=== PATIENT | male | born 1985 ===

== ENCOUNTER 2017-01-20 10:18 | Emergency (ER) | payer OTHER ==
[2017-01-20 10:23] VITALS: BMI 26.4
[2017-01-20 10:41] VITALS: TEMP 97.7
--- NOTE | 2017-01-20 10:54 | RAD ---
HISTORY: pain for 2 days COMPARISON: No prior. TECHNIQUE: Chest PA and lateral FINDINGS: LUNGS: No active pulmonary disease. PLEURA: No significant pleural effusion identified. No pneumothorax apparent. CARDIOVASCULAR: Normal. OSSEOUS STRUCTURES: No significant abnormalities. VISUALIZED UPPER ABDOMEN: Normal. OTHER FINDINGS: None. IMPRESSION: No active disease.
--- NOTE | 2017-01-20 10:56 | C.PDOC ---
History Of Present Illness 31 y/o male, presents to the ED for evaluation of mid-sternal chest pain and epigastric abdominal pain which has been occurring in intermittent episodes since yesterday. Patient is unable to fully describe his symptoms but states his pain became "sharper" when he attempted to take deep breaths this morning. Patient has not taken any medication for his symptoms and denies fever, chills, shortness of breath, difficulty with breathing, nausea, upper/lower extremity numbness/weakness. Time Seen by Provider: 01/20/17 10:32 Chief Complaint (Nursing): Chest Pain History Per: Patient History/Exam Limitations: no limitations Onset/Duration Of Symptoms: Days, Intermittent Episodes Current Symptoms Are (Timing): Still Present Additional History Per: Patient Past Medical History Reviewed: Historical Data, Nursing Documentation, Vital Signs Vital Signs: Last Vital Signs Temp 97.7 F 01/20/17 10:24 Pulse 54 L 01/20/17 11:05 Resp 16 01/20/17 11:05 BP 110/67 01/20/17 11:05 Pulse Ox 100 01/20/17 13:04 - Medical History PMH: No Chronic Diseases Surgical History: No Surg Hx Family History: States: Unknown Family Hx - Social History Hx Alcohol Use: Yes Hx Substance Use: No - Immunization History Hx Tetanus Toxoid Vaccination: No Hx Influenza Vaccination: No Hx Pneumococcal Vaccination: No Review Of Systems Except As Marked, All Systems Reviewed And Found Negative. Constitutional: Negative for: Fever, Chills Cardiovascular: Positive for: Chest Pain (mid-sternal ) Respiratory: Negative for: Shortness of Breath Gastrointestinal: Positive for: Abdominal Pain (epigastric) Physical Exam - Physical Exam Appears: Non-toxic, No Acute Distress Skin: Normal Color, Warm, Dry Head: Atraumatic, Normacephalic Eye(s): bilateral: Normal Inspection, EOMI Oral Mucosa: Moist Neck: Normal ROM, Supple Chest: Symmetrical, No Deformity, Tenderness (reproducible to anterior wall on palpation ) Cardiovascular: Rhythm Regular, No Murmur Respiratory: Normal Breath Sounds, No Rales, No Rhonchi, No Wheezing Gastrointestinal/Abdominal: Soft, No Tenderness, No Guarding, No Rebound Back: Normal Inspection, No Vertebral Tenderness, No Paraspinal Tenderness Extremity: Normal ROM, Capillary Refill (less than 2 seconds) Neurological/Psych: Oriented x3, Normal Speech, Normal Cognition Gait: Steady ED Course And Treatment ECG: Interpreted By Me, Viewed By Me ECG Rhythm: Sinus Bradycardia ECG Interpretation: No Acute Changes Rate From EC O2 Sat by Pulse Oximetry: 100 (on RA) Pulse Ox Interpretation: Normal - Other Rad CXR X-Ray: Interpreted by Me, Viewed By Me, Read By Radiologist Interpretation: Accession No. : [id number]. Patient Name / ID : RAMONA Marcos / [id number]. Exam Date : 01/20/2017 10:42:23 ( Approved ). Study Comment : Sex / Age : M / 31Y. Creator : Ady Peralta MD. Dictator : Ady Peralta MD. Mapping Supervisor : Leather Goods Assembler : Ady Peralta MD. Approver2 : Report Date : 01/20/2017 10:52:37. My Comment : . HISTORY: pain for 2 days. COMPARISON: No prior. TECHNIQUE: Chest PA and lateral. FINDINGS: LUNGS: No active pulmonary disease. PLEURA: No significant pleural effusion identified. No pneumothorax apparent. CARDIOVASCULAR: Normal. OSSEOUS STRUCTURES: No significant abnormalities. VISUALIZED UPPER ABDOMEN: Normal. OTHER FINDINGS: None. IMPRESSION: No active disease. Medical Decision Making Medical Decision Making: Impression: 31y/o male with mid-sternal chest pain and epigastric abdominal pain Plan: * EKG * CXR * Motrin PO * reassess and disposition Progress Notes: EKG and CXR ordered and reviewed. Patient received Motrin PO. Based on history and exam, pain likely musculoskeletal. Patient has low risk factors for ACS. Recommend NSAID for pain and to follow up with PCP Disposition Counseled Patient/Family Regarding: Need For Followup - Disposition Referrals: [facility] [Outside] [facility] [Outside] Disposition: HOME/ ROUTINE Disposition Time: 10:54 Condition: STABLE Additional Instructions: [place] EKG y la radiografa de trax fueron normales El dolor es musculoesqueltico por favor tome ibuprofeno 600mg o tylenol para el dolor Seguimiento en la clnica para demetrio evaluacin posterior Instructions: Musculoskeletal Pain (ED) Print Language: [place] - POA Present On Arrival: None - Clinical Impression Clinical Impression: Musculoskeletal chest pain - 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 - Scribe Statement The provider has reviewed the documentation as recorded by the Scribe (Anna Parker) All medical record entries made by the Scribe were at my direction and personally dictated by me. I have reviewed the chart and agree that the record accurately reflects my personal performance of the history, physical exam, medical decision making, and the department course for this patient. I have also personally directed, reviewed, and agree with the discharge instructions and disposition.
[2017-01-20 11:10] VITALS: BP 110/67; PULSE 54; RESP 16
[2017-01-20 11:25] VITALS: O2SAT 100
--- NOTE | 2017-01-22 11:41 | CARD ---
APPROVED REPORT EKG Measurement Heart [id number] <Conclusion> Sinus bradycardia Otherwise normal ECG
== END 2017-01-20 11:11 | disposition home or self-care (01) ==
LOC: C.ER 10:18
DX: R07.89 Other chest pain (principal)

== ENCOUNTER 2017-06-09 09:41 | Emergency (ER) | payer OTHER ==
[2017-06-09 09:42] VITALS: BMI 26.4
[2017-06-09 09:54] VITALS: RESP 16
[2017-06-09] MEDS ORDERED: Albuterol-Ipratrop 3 mg / 0.5 (3 ml) UD IH STA (10:07)
--- NOTE | 2017-06-09 10:10 | C.PDOC ---
History Of Present Illness 31 y/o M c history of asthma in [place] but never used inhaler p/w shortness of breath x 2 days. Denies fever, cough, chest pain, leg swelling, recent surgery/trauma, long travel. Also states that for over 1 year, patient wakes up at night sometimes with bilateral flank pain which resolves when he urinates. Time Seen by Provider: 06/09/17 09:51 Chief Complaint (Nursing): Shortness Of Breath Past Medical History Vital Signs: Last Vital Signs Temp 97.9 F 06/09/17 09:44 Pulse 65 06/09/17 09:44 Resp 16 06/09/17 09:52 BP 130/78 06/09/17 09:44 Pulse Ox 99 06/09/17 10:30 - Medical History PMH: Asthma Family History: States: Unknown Family Hx - Social History Hx Alcohol Use: Yes Hx Substance Use: No - Immunization History Hx Tetanus Toxoid Vaccination: No Hx Influenza Vaccination: No Hx Pneumococcal Vaccination: No Review Of Systems Except As Marked, All Systems Reviewed And Found Negative. Constitutional: Negative for: Fever Cardiovascular: Negative for: Chest Pain Physical Exam - Physical Exam Additional Physical Exam Comments: Constitutional: No acute distress. Head: Normocephalic. Atraumatic. Eyes: PERRL. ENT: Moist mucous membranes. Neck: Supple. Cardiovascular: Regular rate. Radial pulse 2+ bilaterally. Chest: No tenderness. Respiratory: Clear to auscultation bilaterally. No stridor, wheezing, rhonchi, or crackles. No accessory muscle use. GI: Soft. Nontender. Nondistended. Back: No CVA tenderness. Musculoskeletal: No tenderness or swelling of extremities. Skin: No rash. Neurologic: Alert, no focal deficit. ED Course And Treatment - Laboratory Results Result Diagrams: 06/09/17 10:24 06/09/17 10:24 O2 Sat by Pulse Oximetry: 99 Medical Decision Making Medical Decision Making: CXR no acute disease. Patient states he feels better after treatment. Will discharge home, instructed to find PMD for follow up. Instructed to return to ED for worsening breathing, fever, vomiting. Disposition - Disposition Disposition: HOME/ ROUTINE Disposition Time: 11:02 Condition: STABLE Prescriptions: Albuterol HFA [Ventolin HFA 90 mcg/actuation (8 g)] 2 puff IH Q6 #1 inhaler Instructions: Asthma (ED) Forms: [facility] (Latvian) - Clinical Impression Clinical Impression: Dyspnea
[2017-06-09] MEDS ORDERED: Albuterol-Ipratrop 3 mg / 0.5 (3 ml) UD ONE (10:20)
[2017-06-09 10:27] LABS: BASO # 0.1 K/uL (0.0-0.2); BASO % 0.7 % (0.0-2.0); EOS # 0.5 K/uL (0.0-0.7); EOS % 5.5 % (0.0-4.0); LYMPH # 2.1 K/uL (1.0-4.3); LYMPH % 25.1 % (20.0-40.0); MEAN CELL VOLUME 85.3 fL (80.0-94.0); MEAN CORPUSCULAR HEMOGLOBIN 28.7 pg (27.0-31.0); MEAN CORPUSCULAR HGB CONC 33.7 g/dL (33.0-37.0); MEAN PLATELET VOLUME 9.2 fL (7.2-11.7); MONO # 0.8 K/uL (0.0-0.8); MONO % 9.7 % (0.0-10.0); NRBC % 0.1 % (0.0-2.0); RED CELL DISTRIBUTION WIDTH 12.5 % (11.5-14.5); WHITE BLOOD COUNT 8.3 K/uL (4.8-10.8)
[2017-06-09 10:35] LABS: CHLORIDE 102 mmol/L (98-107); SODIUM 143 mmol/L (132-148)
[2017-06-09 10:37] LABS: GFR AFRICAN-AMERICAN > 60
[2017-06-09 10:38] LABS: ALB/GLOB RATIO 1.1 (1.0-2.1); ALKALINE PHOSPHATASE 75 U/L (38-126); ALT/SGPT 58 U/L (21-72); AST/SGOT 37 U/L (17-59); BILIRUBIN,TOTAL 0.7 mg/dL (0.2-1.3); BLOOD UREA NITROGEN 12 mg/dL (9-20); CARBON DIOXIDE 27 mmol/L (22-30); GLUCOSE,RANDOM 90 mg/dL (75-110)
[2017-06-09 10:40] LABS: URINE BILIRUBIN NEGATIVE (NEGATIVE); URINE BLOOD NEGATIVE (NEGATIVE); URINE COLOR Straw (YELLOW); URINE GLUCOSE (UA) NORMAL (Normal); URINE KETONE NEGATIVE (NEGATIVE); URINE LEUKOCYTE ESTERASE NEG Leu/uL (Negative); URINE PROTEIN NEGATIVE (NEGATIVE); URINE UROBILINOGEN NORMAL mg/dL (0.2-1.0); WBC URINE < 1 /hpf (0-5)
[2017-06-09 11:08] VITALS: BP 128/72; PULSE 68; TEMP 98.1; O2SAT 98
--- NOTE | 2017-06-09 12:09 | RAD ---
HISTORY: dyspnea COMPARISON: Chest radiographs 01/20/2017 TECHNIQUE: Chest PA and lateral FINDINGS: LUNGS: No active pulmonary disease. PLEURA: No significant pleural effusion identified. No pneumothorax apparent. CARDIOVASCULAR: Normal. OSSEOUS STRUCTURES: No significant abnormalities. VISUALIZED UPPER ABDOMEN: Normal. OTHER FINDINGS: None. IMPRESSION: No acute cardiopulmonary is identified or significant interval change compared to 01/20/2017.
== END 2017-06-09 11:15 | disposition home or self-care (01) ==
LOC: C.ER 09:41
DX: J45.909 Unspecified asthma, uncomplicated (principal)